=== PATIENT | female | born 1960 | race Hispanic/Latino ===

== ENCOUNTER 2024-10-27 14:13 | Emergency (ER) | payer BC, OTHER ==
--- OUTSIDE RECORDS SUMMARY | 2024-10-27 14:17 | XMS REPORT | Continuity of Care Document ---
Author Name Unknown Address [address] [facility] [address] [place] [address] [facility] Address [address] [facility] [place] [address] Care Team Providers Care Psychological Anthropologist Name Role Phone [facility] Primary Care Physician DAVIAN CASEY Attending Clinician Unavailable Davian Mireles Attending Clinician [phone] ROCIO CASTORENA Attending Clinician Unavailabl e Doctor Unassigned, [place] Attending Clinician U Rocio Webb MD Attending Clinician [phone] [facility]_WalkInSchedul Attending Clinician Unavail able [facility]_Walk-In Attending Clinician Unavailable David Skinner Attending Clinician [phone] [facility]_WalkInSchedul Admitting Clinician Unavail able [facility]_Walk-In Admitting Clinician Unavailable Payers Payer Name Policy Type Policy Number Effective Date Expirati on Date Source [place] [id number] 2020 00:00:00 [place] [id number] 2021 00:00:00 Problems Condition Name Condition Details Condition Category Status Onset Date Resolution Date Last Treatment Date Treating Clinician Comments Source Prediabete s Prediabete s Problem Active 11-24 00:00: 00 [facility] Allergic rhinitis Allergic Rhinitis Problem Active 12-17 00:00: 00 [facility] Gastro-eso phageal reflux disease with esophagiti s Gastro-eso phageal Reflux Disease with Esophagiti s Problem Active 12-17 00:00: 00 [facility] Hyperlipid emia Hyperlipid emia Problem Active 6- 00:00: 00 [facility] Essential hypertensi on Essential Hypertensi on Problem Active 6 00:00: 00 [facility] No known active problems No known active problems Disease [facility] Allergies, Adverse Reactions, Alerts Allergy Name Allergy Type Status Severity Reaction(s) Onset Date Inactive Date Treating Clinician Comments Source NO KNOWN ALLERGIE S Drug Class Active [facility] Social History Social Habit Start Date Stop Date Quantity Comments Source Gender identity [facility] Sexual orientation U [facility] Alcohol intake 2023-02-11 00:00:00 2023-02-11 00:00:00 Lifetime non-drinker (finding) [facility] Exposure to SARS-CoV-2 (event) 2022-11-30 00:00:00 2022-12-10 07:58:00 Not sure [facility] History of Social function 2022-12-10 00:00:00 2022-12-10 00:00:00 [facility] Tobacco use and exposure 2021-05-13 00:00:00 2021-05-13 00:00:00 Smokeless tobacco non-user [facility] Sex Assigned At 1960 00:00:00 1960 00:00:00 [facility] Smoking Status Start Date Stop Date Source Never smoked tobacco [facility] Medications Ordered Medication Name Filled Medication Name Start Date Stop Date Current Medication? Ordering Clinician Indication Dosage Frequency Signature (SIG) Comments Components Source sodium hyaluronate (viscosup) (ORTHOVISC) injection 30 mg 02-11 14:15: 00 02-11 13:21 :00 No [id number] 9100 30mg [facility] sodium hyaluronate (viscosup) (ORTHOVISC) injection 30 mg 01-18 20:00: 00 01-18 19:56 :00 No [id number] 9100 30mg [facility] sodium hyaluronate (viscosup) (ORTHOVISC) injection 30 mg 01-11 14:45: 00 01-11 14:26 :00 No [id number] 9100 30mg [facility] diclofenac 75 mg EC tablet 12-21 00:00: 00 01-21 04:59 :00 No [id number] 75mg Take 1 tablet by mouth 2 (two) times daily with meals for 30 days. [facility] diclofenac 75 mg EC tablet 12-10 00:00: 00 Yes [id number] 75mg Take 1 tablet by mouth 2 (two) times daily with meals. [facility] diclofenac 75 mg EC tablet 2020-07 00:00: 00 Yes 75mg Take 1 tablet by mouth 2 (two) times daily with meals. [facility] methylPREDN ISolone (MEDROL, MARIA ELENA,) 4 mg tablets 2020-07 00:00: 00 Yes Take by mouth SEE-INSTRU CTIONS. follow package directions [facility] methylPREDN ISolone (MEDROL, MARIA ELENA,) 4 mg tablets 2020-07 00:00: 00 Yes [id number] 4105 84mg Take 21 tablets by mouth SEE-INSTRU CTIONS. follow package directions [facility] diclofenac 75 mg EC tablet 2020-07 00:00: 00 Yes [id number] 4105 75mg Take 1 tablet by mouth 2 (two) times daily with meals. [facility] amLODIPine 5 mg tablet 04-14 00:00: 00 Yes [facility] atorvastati n 20 mg tablet 04-14 00:00: 00 Yes [facility] naproxen 500 mg tablet 04-11 00:00: 00 Yes [facility] metoprolol tartrate 100 mg tablet Take 1 tablet twice a day by oral route. metoprolol tartrate 100 mg tablet Take 1 tablet twice a day by oral route. No 1 BID metoprolol tartrate 100 mg tablet Take 1 tablet twice a day by oral route. [facility] amlodipine 5 mg-valsarta n 320 mg tablet Take 1 tablet every day by oral route. amlodipine 5 mg-valsarta n 320 mg tablet Take 1 tablet every day by oral route. No 1 Q1D amlodipine 5 mg-valsart an 320 mg tablet Take 1 tablet every day by oral route. [facility] atorvastati n 40 mg tablet Take 1 tablet every day by oral route at dinner. atorvastati n 40 mg tablet Take 1 tablet every day by oral route at dinner. No 1 Q1D atorvastat in 40 mg tablet Take 1 tablet every day by oral route at dinner. [facility] celecoxib 200 mg capsule Take 1 capsule every day by oral route. celecoxib 200 mg capsule Take 1 capsule every day by oral route. No 1capsul e(s) Q1D celecoxib 200 mg capsule Take 1 capsule every day by oral route. [facility] levocetiriz ine 5 mg tablet Take 1 tablet every day by oral route. levocetiriz ine 5 mg tablet Take 1 tablet every day by oral route. No 1 Q1D levocetiri zine 5 mg tablet Take 1 tablet every day by oral route. [facility] omeprazole 40 mg capsule,del ayed release Take 1 capsule every day by oral route in the morning. omeprazole 40 mg capsule,del ayed release Take 1 capsule every day by oral route in the morning. No 1capsul e(s) Q1D omeprazole 40 mg capsule,de layed release Take 1 capsule every day by oral route in the morning. [facility] Zyrtec-D 5 mg-120 mg tablet,exte nded release Take 1 tablet every 12 hours by oral route. Zyrtec-D 5 mg-120 mg tablet,exte nded release Take 1 tablet every 12 hours by oral route. No 1 Q12H Zyrtec-D 5 mg-120 mg tablet,ext ended release Take 1 tablet every 12 hours by oral route. [facility] Immunizations Ordered Immunization Name Filled Immunization Name Date Status Comments Source influenza, injectable, quadrivalent influenza, injectable, quadrivalent Unknown Completed [facility] influenza nasal, unspecified formulation influenza nasal, unspecified formulation Unknown Completed [facility] Vital Signs Vital Name Observation Time Observation Value Comments S ource BP Diastolic 2024-07-17 00:00:00 113 mm[Hg] [facility] Weight 2024-07-17 00:00:00 3408 [oz_av] [facility] Height 2024-07-17 00:00:00 64 [in_i] [facility] BMI (Body Mass Index) 2024-07-17 00:00:00 36.6 kg/m2 [facility] BP Systolic 2024-07-17 00:00:00 197 mm[Hg] [facility] BMI (Body Mass Index) 2023-11-24 00:00:00 35.2 kg/m2 [facility] BP Diastolic 2023-11-24 00:00:00 84 mm[Hg] [facility] Weight 2023-11-24 00:00:00 3280 [oz_av] [facility] BP Systolic 2023-11-24 00:00:00 181 mm[Hg] [facility] Height 2023-11-24 00:00:00 64 [in_i] [facility] Systolic blood pressure 2023-02-11 13:02:00 161 mm[Hg] [facility] Diastolic blood pressure 2023-02-11 13:02:00 96 mm[Hg] [facility] Heart rate 2023-02-11 13:02:00 75 /min [facility] Body height 2023-02-11 13:02:00 165.1 cm [facility] Body weight 2023-02-11 13:02:00 93.895 kg [facility] BMI 2023-02-11 13:02:00 34.45 kg/m2 [facility] Systolic blood pressure 2023-01-18 19:53:00 141 mm[Hg] [facility] Diastolic blood pressure 2023-01-18 19:53:00 80 mm[Hg] [facility] Heart rate 2023-01-18 19:53:00 68 /min [facility] Body height 2023-01-18 19:53:00 165.1 cm [facility] Body weight 2023-01-18 19:53:00 94.121 kg [facility] BMI 2023-01-18 19:53:00 34.53 kg/m2 [facility] Systolic blood pressure 2023-01-11 13:51:00 166 mm[Hg] [facility] Diastolic blood pressure 2023-01-11 13:51:00 81 mm[Hg] [facility] Heart rate 2023-01-11 13:51:00 64 /min [facility] Body height 2023-01-11 13:50:00 [facility] 2023-01-11 13:50:00 87.091 kg [facility] BMI 2023-01-11 13:50:00 31.95 kg/m2 [facility] Systolic blood pressure 2022-12-10 13:17:00 163 mm[Hg] [facility] Diastolic blood pressure 2022-12-10 13:17:00 95 mm[Hg] [facility] Heart rate 2022-12-10 13:17:00 78 /min [facility] Body height 2022-12-10 13:16:00 165.1 cm [facility] Body weight 2022-12-10 13:16:00 87.091 kg [facility] BMI 2022-12-10 13:16:00 31.95 kg/m2 [facility] Body height 2022-08-19 14:19:00 165.1 cm [facility] Body weight 2022-08-19 14:19:00 88.451 [facility] BMI 2022-08-19 14:19:00 32.45 kg/m2 [facility] BP Diastolic 2022-01-06 00:00:00 106 mm[Hg] [facility] Height 2022-01-06 00:00:00 64 [in_i] [facility] BMI (Body Mass Index) 2022-01-06 00:00:00 34.7 kg/m2 [facility] BP Systolic 2022-01-06 00:00:00 186 mm[Hg] [facility] Body Weight 2022-01-06 00:00:00 3232 [oz_av] [facility] Systolic blood pressure 2021-05-13 17:57:00 161 mm[Hg] [facility] Diastolic blood pressure 2021-05-13 17:57:00 85 mm[Hg] [facility] Heart rate 2021-05-13 17:57:00 77 /min [facility] Body height 2021-05-13 17:57:00 165.1 cm [facility] Body weight 2021-05-13 17:57:00 90.719 kg [facility] BMI 2021-05-13 17:57:00 33.28 kg/m2 [facility] Procedures Procedure Date / Time Performed Performing Clinicia n Source EXTERNAL PROVIDER RECORDS 2022-12-24 05:01:00 Doctor Unassigned, [place] [facility] PATIENT FINANCIAL POLICY 2022-12-10 12:59:49 Doctor Unassigned, [place] [facility] MAMMO, screening, digital, bilateral 2022-01-06 00:00:00 [facility] Encounters Start Date/Time End Date/Time Encounter Type Admission Type Attending [facility] Care Facility Care Department Encounter ID Source 2024-07-17 00:00:00 2024-07-17 00:00:00 JUANCARLOS Lovett: [id number] [address] , Ph. [facility]_Need xochilt Office [id number] [facility] 2023-11-24 00:00:00 2023-11-24 00:00:00 SHANE Rose: [address] [address] , Ph. [facility] - [facility]_CPC_Need xochilt Office [id number] [facility] 2023-02-11 08:00:00 2023-02-11 08:10:05 Outpatient R DAVIAN CASEY [facility] [id number] [facility] 2023-02-11 08:00:00 2023-02-11 08:10:05 [facility] [id number] 350.1.13.10 4.2.7.2.686 [id number] [facility] 2023-02-02 14:00:00 2023-02-02 14:00:00 Outpatient DAVIAN ANGUIANO [facility] [id number] [facility] 2023-02-02 13:30:00 2023-02-02 13:30:00 Outpatient R JOANA ROCIO [facility] [id number] [facility] 2023-01-26 13:00:00 2023-01-26 13:00:00 Outpatient R JOANA ROCIO [facility] [id number] [facility] 2023-01-18 14:45:00 2023-01-18 15:54:19 Outpatient R [facility] [id number] [facility] 2023-01-18 14:45:00 2023-01-18 15:54:19 Office Visit [facility] 1.840.114 350.1.13.10 4.2.7.2.686 [id number] [facility] 2023-01-11 09:00:00 2023-01-11 09:26:43 Outpatient Georgina CASEY [facility] [id number] [facility] 2023-01-11 09:00:00 2023-01-11 09:26:43 Office Visit [facility] 1.840.114 350.1.13.10 4.2.7.2.686 [id number] [facility] 2022-12-24 00:00:00 2022-12-24 00:00:00 Orders Only Doctor Unassigned, [place] [facility] 1.84.114 350.1.13.10 4.2.7.2.686 [id number] [facility] 2022-12-24 00:00:00 2022-12-24 00:00:00 Telephone Rocio Castorena [facility] 1.0.114 350.1.13.10 4.2.7.2.686 [id number] [facility] 2022-12-21 00:00:00 2022-12-21 00:00:00 Telephone Rocio Castorena [facility] 1.0.114 350.1.13.10 4.2.7.2.686 [id number] [facility] 2022-12-17 00:00:00 2022-12-17 00:00:00 [facility] [id number] [facility] 2022-12-10 08:45:00 2022-12-10 09:04:01 Office Visit Rocio Castorena [facility] 1.0.114 350.1.13.10 4.2.7.2.686 [id number] [facility] 2022-12-10 08:45:00 2022-12-10 09:04:01 Outpatient R ROCIO CASTORENA [facility] [id number] [facility] 2022-12-10 00:00:00 2022-12-10 00:00:00 Telephone Rocio Castorena [facility] 1..114 350.1.13.10 4.2.7.2.686 [id number] [facility] 2022-12-10 00:00:00 2022-12-10 00:00:00 Orders Only Doctor Unassigned, [place] [facility] 1.0.114 350.1.13.10 4.2.7.2.686 [id number] [facility] 2022-08-19 08:30:00 2022-08-19 08:46:12 Outpatient R ROCIO CASTORENA [facility] [id number] [facility] 2022-08-19 08:30:00 2022-08-19 08:46:12 Office Visit Rocio Castorena [facility] 1.2.840.114 350.1.13.10 4.2.7.2.686 [id number] [facility] 2022-01-11 12:37:00 2022-01-11 12:37:00 Outpatient [facility] [id number] [facility] 2022-01-06 12:24:00 2022-01-06 12:24:00 Outpatient [facility] [id number] [facility] 2022-01-06 00:00:00 2022-01-06 00:00:00 Outpatient David Skinner [facility] [id number] 2022-01-06 00:00:00 2022-01-06 00:00:00 David Skinner, FORCE ADJUSTMENT SUPERVISOR: [address] [address] , Ph. [facility]* [id number] [facility] 2021-05-13 12:33:52 2021-05-13 13:53:58 Office Visit Rocio Castorena [facility] 1.2.840.114 350.1.13.10 4.2.7.2.686 [id number] [facility]
--- NOTE | 2024-10-27 15:37 | RAD REPORT ---
EXAMINATION: XR LEFT KNEE CLINICAL INDICATION: PAIN TECHNIQUE: Multiple projections of the left knee were obtained. COMPARISON: No prior exam. FINDINGS: Hardware is present in the tibia. No hardware loosening. Prominent varicosities seen media l leg. Small ossific densities are seen posterior to the joint as well as adjacent to the lateral femoral condyle, favored to be chronic. No definitive acute fracture evident. If pain persists, MR im aging could be performed of the knee for further evaluation.
--- NOTE | 2024-10-27 16:28 | EDPHYS ---
Physician Documentation [facility] Name: Laly Guidry Age: 64 yrs Sex: Female : 1960 Arrival Date: 10/27/2024 Time: 14:13 Bed 11 Private MD: ED Physician Brandon Magaña HPI: 10/27 14:48 This 64 yrs old Female presents to ER via Wheelchair with complaints of Leg sb4 Injury - left. 14:48 The patient presents with an injury, pain, that is acute. The complaints affect the sb4 lateral aspect of left knee. Context: The problem was sustained at home, resulted from the patient falling, the patient can partially bear weight, the patient is able to ambulate, with mild difficulty, Problem is a result from a previous injury: Yes. Onset: The symptoms/episode began/occurred just prior to arrival. Modifying factors: The symptoms are alleviated by remaining still, the symptoms are aggravated by weight bearing. Treatment prior to arrival includes: no previous treatment. Historical: - Allergies: 14:46 No Known Allergies; iw - PMHx: 14:46 Hypertensive disorder; iw - Immunization history:: Adult Immunizations up to date. - Infectious Disease History:: Denies. - Social history:: Smoking status: Patient denies any tobacco usage or history of. ROS: 14:49 Constitutional: Negative for fever, chills, and weight loss, sb4 14:49 MS/extremity: Positive for injury or acute deformity, pain, of the lateral aspect of left knee, 14:49 All other systems are negative, Exam: 14:49 Constitutional: This is a well developed, well nourished patient who is awake, alert, sb4 and in no acute distress. Head/Face: Normocephalic, atraumatic. Eyes: Extra-ocular motions intact. Periorbital areas with no swelling, redness, or edema. ENT: Mucous membranes moist. Respiratory: No increased work of breathing, no retractions or nasal flaring. Skin: Warm, dry with normal turgor. Normal color with no rashes, no lesions, and no evidence of cellulitis. MS/ Extremity: Pulses equal, no cyanosis. Neurovascular intact. Full, normal range of motion. Vital Signs: 14:46 BP 147 / 97; Pulse 76; Resp 18; Temp 97.8; Pulse Ox 96% on R/A; Weight 85.73 kg; Height iw 5 ft. 0 in. ; 14:46 Body Mass Index 36.91 (85.73 kg, 152.4 cm) iw MDM: 14:25 Medical Screening Exam initiated sb4 16:27 Data reviewed: vital signs, nurses notes, radiologic studies, and as a result, I will sb4 discharge patient. Counseling: I had a detailed discussion with the patient and/or guardian regarding the historical points, exam findings, and any diagnostic results supporting the discharge/admit diagnosis, radiology results, the need for outpatient follow up, for definitive care, to return to the emergency department if symptoms worsen or persist or if there are any questions or concerns that arise at home. 10/27 14:47 Order name: Knee Left 3 View XRAY; Complete Time: 15:37 sb4 10/27 16:27 Order name: Knee Immobilizer; Complete Time: 16:43 sb4 Administered Medications: No medications were administered Disposition Summary: 10/27/24 16:28 Discharge Ordered Notes: Location: Home sb4 Problem: new sb4 Symptoms: have improved sb4 Condition: Stable sb4 Diagnosis - Contusion of left knee sb4 Followup: sb4 - With: Oleksandr Nichols MD - When: As needed - Reason: Recheck today's complaints, Re-evaluation by your physician Discharge Instructions: - Discharge Summary Sheet sb4 - Contusion, [id number]-ti-Qhge sb4 - Knee Sprain, Adult, [id number]-[id number] sb4 Forms: - Patient Portal Instructions sb4 - Leadership Thank You Letter sb4 Prescriptions: - meloxicam 7.5 mg Oral tablet - take 1 tablet ORAL route daily; 14 tablet; Refills: 0, Product Selection sb4 Permitted - methocarbamol 750 mg Oral tablet - take 1 tablet ORAL route 3 times per day; 15 tablet; Refills: 0, Product sb4 Selection Permitted Signatures: Dispatcher [employer] Concha Glass RN RN iw Brown, Sophia, PA-C PA-C sb4
--- NOTE | 2024-10-27 16:28 | ER ---
Nurse's Notes [facility] Name: Laly Guidry Age: 64 yrs Sex: Female : 1960 Arrival Date: 10/27/2024 Time: 14:13 Bed 11 Private MD: Diagnosis: Contusion of left knee Presentation: 10/27 14:46 Chief complaint: Patient states: was walking and fell, injured her left knee/ray area. iw Coronavirus screen: At this time, the client does not indicate any symptoms associated with coronavirus-19. Ebola Screen: No symptoms or risks identified at this time. Initial Sepsis Screen: Does the patient meet any 2 criteria? No. Patient's initial sepsis screen is negative. Does the patient have a suspected source of infection? No. Patient's initial sepsis screen is negative. Risk Assessment: Do you want to hurt yourself or someone else? Patient reports no desire to harm self or others. Onset of symptoms was October 27, 2024. 14:46 Method Of Arrival: Wheelchair iw 14:46 Acuity: ANGELICA 4 iw Triage Assessment: 14:46 General: Appears in no apparent distress. Behavior is calm, cooperative. iw Historical: - Allergies: 14:46 No Known Allergies; iw - PMHx: 14:46 Hypertensive disorder; iw - Immunization history:: Adult Immunizations up to date. - Infectious Disease History:: Denies. - Social history:: Smoking status: Patient denies any tobacco usage or history of. Screenin:43 [facility] ED Fall Risk Assessment (Adult) History of falling in the last 3 months, iw including since admission Yes- single mechanical fall (1 pt) Confusion or Disorientation No (0 pts) Intoxicated or Sedated No (0 pts) Impaired Gait No (0 pts) Mobility Assist Device Used No (0 pt) Altered Elimination No (0 pt) Score/Fall Risk Level 0 - 2 = Low Risk Oriented to surroundings, Maintained a safe environment. Abuse screen: Denies threats or abuse. Denies injuries from another. Nutritional screening: No deficits noted. Tuberculosis screening: No symptoms or risk factors identified. Assessment: 14:46 General: Appears in no apparent distress. Behavior is calm, cooperative. Pain: iw Complains of pain in lateral aspect of left knee Pain currently is 3 out of 10 on a pain scale. Neuro: Level of Consciousness is awake, alert, obeys commands, Oriented to person, place, time, situation, Moves all extremities. Full function. Cardiovascular: Patient's skin is warm and dry. Respiratory: Respiratory effort is even, unlabored, Respiratory pattern is regular, symmetrical. Derm: Skin is intact, is healthy with good turgor. Musculoskeletal: Range of motion: intact in all extremities. Vital Signs: 14:46 BP 147 / 97; Pulse 76; Resp 18; Temp 97.8; Pulse Ox 96% on R/A; Weight 85.73 kg; Height iw 5 ft. 0 in. ; 14:46 Body Mass Index 36.91 (85.73 kg, 152.4 cm) iw ED Course: 14:18 Patient arrived in ED. im 14:21 Cassidy Philip PA-C is PHCP. sb4 14:21 Brandon Magaña MD is Attending Physician. sb4 14:46 Patient has correct armband on for positive identification. Provided Education on: . iw 14:47 Triage completed. iw 14:47 Arm band placed on. iw 15:27 Concha Vincnet, RN is Primary Nurse. iw 15:30 Knee Left 3 View XRAY In Process Unspecified. EDMS 16:27 Oleksandr Nichols MD is Referral Physician. sb4 16:43 No provider procedures requiring assistance completed. Patient did not have IV access iw during this emergency room visit. Administered Medications: No medications were administered Medication: 14:45 VIS not applicable for this client. iw Outcome: 16:28 Discharge ordered by MD. sb4 16:43 Discharged to home ambulatory, with family, iw 16:43 Condition: good 16:43 Discharge instructions given to patient, family, Instructed on discharge instructions, follow up and referral plans. medication usage, Demonstrated understanding of instructions, follow-up care, medications, Prescriptions given X 2, 16:44 Patient left the ED. iw Signatures: Dispatcher [employer] EDMS Concha Vincent RN RN iw Cassidy Philip PA-C PA-C sb4 Zakia Colon im Corrections: (The following items were deleted from the chart) 14:47 14:46 BP 147 / 97; Pulse 76bpm; Resp 18bpm; Pulse Ox 96% RA; Temp 97.8F; iw iw
[2024-10-27 16:54] VITALS: BP 147/97; TEMP 97.8; O2SAT 96
== END 2024-10-27 16:44 | disposition home or self-care (01) ==
LOC: ER 14:13
DX: S80.02XA Contusion of left knee, initial encounter (principal)
CPT/HCPCS: 99283